=== PATIENT | female | born 1980 | race Caucasian/White ===

== ENCOUNTER → 2016-09-30 | Outpatient (CLI) | payer BC ==
[~2016-09-30] MED LIST: COLACE-DPS100 MG PO; FLONASE 0.05% D16 GM NS; MOTRIN-DPS800 MG PO; PLEXUS PROBIOTIC PO; PROCARDIA XL DP30 MG PO; TYLENOL EXTRA500 M1 PO; VITAMIN C500 M2 PO; ZYRTEC DPS10 MG PO; [UNRECOGNIZED DRUG - OTHER] PO; [UNRECOGNIZED DRUG - OTHER] PO
== END | disposition home or self-care (01) ==
LOC: EDT 16:15
DX: O24.419 Gestational diabetes mellitus in pregnancy, unspecified control (principal); Z71.3 Dietary counseling and surveillance